=== PATIENT | male | born 1950 | race Caucasian/White ===

== ENCOUNTER 2017-11-23 20:13 | Emergency (ER) | payer OTHER ==
[2017-11-23 20:23] VITALS: TEMP 98; BMI 34.9
[2017-11-23] MEDS ORDERED: SODIUM CHLORIDE 1,000 ML IV STA (20:25)
[2017-11-23] MEDS ORDERED: DILAUDID IVP STA (20:25)
[2017-11-23] MEDS ORDERED: ZOFRAN 4 MG/2 ML IVP STA (20:26)
--- NOTE | 2017-11-23 21:04 | CT ---
EXAM: CT abdomen pelvis without intravenous contrast 11/23/2017. Sagittal and coronal reformatted steve hale obtained HISTORY: Lower abdominal pain COMPARISON: None. FINDINGS: Bibasilar atelectasis. Hepatic steatosis. The liver and gallbladder show no acute abnormality. The adrenal glands and kidneys show no acute process. No hydronephrosis. The spleen and pancreas sh ow no acute process. Ovoid high density structure is present within small bowel as seen on axial series image 113. This h as a lucent center and jagged margins. This is of certain etiology. On image 113 this measures 3.0 x 1.9 cm diameter. Small proximal to this level is dilated. Mesenteric edema is associated with a d ilated bowel. Small bowel measures up to approximately 3.7 cm diameter. This structure appears to be causing at least partial small bowel obstruction. The small bowel distal to this structure is decom pressed. The colon is decompressed.. Normal appendix. Unremarkable urinary bladder. No free air or free fluid. IMPRESSION: Ovoid high density structure can be seen within the small bowel on image 113. This appe ars to be causing at least partial small bowel obstruction.This appears to represent foreign body and is of uncertain etiology. Critical FINDINGS: I personally discussed these findings with Dr. Hull, emergency department 11/23, 8:57 p.m.
--- NOTE | 2017-11-23 21:14 | ED.PDOC ---
General ED Provider: Dr. TONNY FRANKLIN-ER Chief Complaint: Abdominal Pain Stated Complaint: maria d been vomiting since this am Time Seen by Physician: 20:15 Mode of Arrival: Walk-In Information Source: Patient, Family Exam Limitations: No limitations Nursing and Triage Documentation Reviewed and Agree: Yes Does patient meet sepsis criteria?: No System Inflammatory Response Syndrome: Not Applicable Sepsis Protocol: For patient's 13 years and over: Temp is 96.8 and below OR 101 and greater Pulse >90 BPM Resp >20/minute Acutely Altered Mental Status Are patient's symptoms suggestive of a new infection, such as: -Pneumonia -Skin, Soft Tissue -Endocarditis -UTI -Bone, Joint Infection -Implantable Device -Acute Abdominal Infection -Wound Infection -Meningitis -Blood Stream Catheter Infection -Unknown GI Complaint Exam - Vomiting/Diarrhea Complaint/Exam Onset/Duration: 12 hrs Symptoms Are: Still present Initial Severity: Mild Current Severity: Moderate Aggravating: Reports: None Alleviating: Reports: None Associated Signs and Symptoms: Reports: Abdominal pain, Cramping Differential Diagnoses: Bowel Obstruction Review of Systems - Review Of Systems Constitutional: Reports: No symptoms Eyes: Reports: No symptoms Ears, Nose, Mouth, Throat: Reports: No symptoms Respiratory: Reports: No symptoms Cardiac: Reports: No symptoms GI: Reports: Abdominal pain, Nausea, Vomiting : Reports: No symptoms Musculoskeletal: Reports: No symptoms Skin: Reports: No symptoms Neurological: Reports: No symptoms Endocrine: Reports: No symptoms Hematologic/Lymphatic: Reports: No symptoms All Other Systems: Reviewed and Negative Past Medical History - Past Medical History Previously Healthy: Yes Endocrine: Reports: Unknown Cardiovascular: Reports: Unknown Respiratory: Reports: Unknown Hematological: Reports: Unknown Gastrointestinal: Reports: Unknown Genitourinary: Reports: Unknown Neuro/Psych: Reports: Unknown Musculoskeletal: Reports: Unknown Cancer: Reports: Unknown - Surgical History General Surgical History: Reports: Unknown - Family History Family History: Reports: Unknown - Social History Smoking Status: Former smoker Hx Substance Use: No Alcohol Screening: Heavy - Immunizations Tetanus Shot up to Date: Yes Physical Exam - Physical Exam Appearance: Well-appearing, No pain distress, Well-nourished Pain Distress: Mild Eyes: TEODORA, EOMI, Conjunctiva clear ENT: Ears normal, Nose normal, Oropharynx normal Neck: Supple Respiratory: Airway patent, Breath sounds clear, Breath sounds equal, Respirations nonlabored Cardiovascular: RRR GI/: Soft Musculoskeletal: Normal strength Skin: Warm, Dry, Normal color Neurological: Sensation intact Psychiatric: Affect appropriate Interpretation - Radiology Interpretation Radiology Interpretation By: Radiologist Radiology Results: Negative Exam Interpreted: CT Scan - EKG Interpretation Time of EKG #1: 21:14 Rate: Normal Rhythm: Sinus Ectopy: None [place]: NL ST Segment: Normal Interpretation: nsr Physician Notification - Case Discussed Physician Notified: dr adler Time of Notification: 21:19 Critical Care Note - Critical Care Note Total Time (mins): 0 Course - Course Hematology/Chemistry: 11/23/17 20:40 11/23/17 20:40 Orders, Labs, Meds: Lab Review 11/23/17 11/23/17 20:40 20:40 WBC 14.91 H RBC 4.64 L Hgb 19.1 H Hct 53.1 H MCV 114.4 H MCH 41.2 H MCHC 36.0 H RDW Coeff of Gricelda 12.9 Plt Count 203 Immature Gran % (Auto) 0.3 Neut % (Auto) 85.9 Lymph % (Auto) 7.6 L Bureau % (Auto) 5.8 Eos % (Auto) 0.1 Baso % (Auto) 0.3 Immature Gran # (Auto) 0.0 Neut # (Auto) 12.8 H Lymph # (Auto) 1.1 Bureau # (Auto) 0.9 Eos # (Auto) 0.0 Baso # (Auto) 0.0 Anisocytosis Not present Macrocytosis 1+ Sodium 140 Potassium 3.9 Chloride 98 Carbon Dioxide 30 Anion Gap 15.9 BUN 11 Creatinine 0.84 Estimated GFR (MDRD) 92.00 BUN/Creatinine Ratio 13.09 Glucose 184 H Calcium 10.2 Total Bilirubin 1.4 H AST 45 H ALT 46 Alkaline Phosphatase 68 Total Protein 8.4 H Albumin 3.4 Globulin 5.0 Albumin/Globulin Ratio 0.68 Amylase 26 Lipase 9 Orders Category Date Time Status ABG DRAW REQUEST Stat CARDIO 11/23/17 21:16 Ordered EKG-(ED ONLY) Stat CARDIO 11/23/17 20:25 Ordered ED IV/MEDIPORT/POWERPORT .ONCE EMERGENCY 11/23/17 20:25 Active NG Tube [ED NASOGASTRIC TUBE INSERTION] .ONCE EMERGENCY 11/23/17 21:10 Active AMYLASE Stat LAB 11/23/17 20:40 Completed ARTERIAL BLOOD GAS [ABG] Stat LAB 11/23/17 21:16 Ordered CBC W/ AUTO DIFF Stat LAB 11/23/17 20:40 Completed COMPREHENSIVE METABOLIC PANEL Stat LAB 11/23/17 20:40 Completed LIPASE Stat LAB 11/23/17 20:40 Completed RBC MORPHOLOGY Stat LAB 11/23/17 20:40 Completed URINALYSIS C & S IF INDICATED Stat LAB 11/23/17 20:25 Uncollected 0.9 % Sodium Chloride [Saline Flush] MEDS 11/23/17 20:25 Ordered 1 syr IVF PRN PRN Hydromorphone HCl [Dilaudid] MEDS 11/23/17 20:25 Discontinued 1 mg IVP ONCE STA Ondansetron HCl/Pf [Zofran 4 mg/2 ml] MEDS 11/23/17 20:26 Discontinued 4 mg IVP ONCE STA Sodium Chloride 0.9% [Sodium Chloride] 1,000 ml MEDS 11/23/17 20:25 Active IV 100 mls/hr CT ABDOMEN/PELVIS WO CONTRAST Stat RADS 11/23/17 20:26 Completed CXR [CHEST, 1V AP ONLY] Stat RADS 11/23/17 21:16 Ordered Medications Generic Name Dose Route Start Last Admin Trade Name Freq PRN Reason Stop Dose Admin Sodium Chloride 1,000 mls @ 100 mls/hr 11/23/17 20:25 11/23/17 20:47 Sodium Chloride IV 11/24/17 06:24 100 mls/hr .Q10H STA Administration Sodium Chloride 1 syr 11/23/17 20:25 Saline Flush IVF PRN PRN To flush IV Discontinued Medications Generic Name Dose Route Start Last Admin Trade Name Freq PRN Reason Stop Dose Admin Hydromorphone HCl 1 mg 11/23/17 20:25 11/23/17 20:49 Dilaudid IVP 11/23/17 20:26 1 mg ONCE STA Administration Ondansetron HCl 4 mg 11/23/17 20:26 11/23/17 20:46 Zofran 4 Mg/2 Ml IVP 11/23/17 20:27 4 mg ONCE STA Administration Vital Signs: Temp Pulse Resp BP Pulse Ox 11/23/17 21:18 149/97 H 11/23/17 20:14 98.0 F 99 H 16 163/117 H 88 L Departure - Departure Time of Disposition: 21:19 Disposition: TSF SHORT-TRM HOSP Discharge Problem: Small bowel obstruction Instructions: Bowel Obstruction (ED) Condition: Fair Pt referred to PMD for follow-up: No IPMP verified?: No Allergies/Adverse Reactions: Allergies No Known Allergies Allergy (Unverified 11/23/17 20:22) Home Medications: Ambulatory Orders 1 [No Reported Medications] 11/23/17 Transfer Form Completed: Yes Disposition Discussed With: Patient, Family
[2017-11-23 21:46] VITALS: BP 138/81
--- NOTE | 2017-11-24 07:26 | DI ---
EXAM: Single view of the chest. History: Hypoxia. Findings: Heart size is within normal limits. No focal consolidation. No appreciable pleural fluid and no pneumothorax. Partially visualized nasogastric tube. No acute osseous abnormalities. Impression: No acute cardiopulmonary process.
== END 2017-11-23 22:19 | disposition short-term general hospital (02) ==
LOC: ED 20:13
DX: K56.609 Unspecified intestinal obstruction, unspecified as to partial versus complete obstruction (principal)
CPT/HCPCS: 36415; 80053; 82150; 82803; 83690; 85008; 85025; 93005; 93010; 96361; 96374; 96375; 99284

== ENCOUNTER 2018-06-06 11:04 | Outpatient (CLI) | payer OTHER | END 2018-06-06 11:05 | disposition home or self-care (01) | LOC: RHC-LAB 11:04 | PROVIDERS: ATTEND Nurse Practitioner Family | DX: L03.115 Cellulitis of right lower limb (principal); R06.02 Shortness of breath; R73.9 Hyperglycemia, unspecified; E78.5 Hyperlipidemia, unspecified; E66.9 Obesity, unspecified; Z12.5 Encounter for screening for malignant neoplasm of prostate | CPT/HCPCS: 36415; 80053; 80061; 83036; 85008; 85025 ==